=== PATIENT | female | born 1980 | race Caucasian/White ===

== ENCOUNTER → 2016-10-02 | Outpatient (CLI) | payer OTHER | LOC: HPND 12:51 → EDBD 13:00 | DX: O09.523 Supervision of elderly multigravida, third trimester (principal); O36.1130 Maternal care for Anti-A sensitization, third trimester, not applicable or unspecified; O36.0130 Maternal care for anti-D [Rh] antibodies, third trimester, not applicable or unspecified; O34.212 Maternal care for vertical scar from previous cesarean delivery; Z3A.33 33 weeks gestation of pregnancy | CPT/HCPCS: 76816; 76821 ==

== ENCOUNTER → 2016-10-23 | Outpatient (CLI) | payer OTHER | LOC: HPND 12:47 | DX: O09.523 Supervision of elderly multigravida, third trimester (principal); O36.1120 Maternal care for Anti-A sensitization, second trimester, not applicable or unspecified; O36.1110 Maternal care for Anti-A sensitization, first trimester, not applicable or unspecified; O34.211 Maternal care for low transverse scar from previous cesarean delivery; Z3A.37 37 weeks gestation of pregnancy | CPT/HCPCS: 76816; 76821 ==